=== PATIENT | female | born 1985 | race Caucasian/White ===

== ENCOUNTER 2024-07-07 09:49 | Emergency (ER) | payer BC ==
[~2024-07-07] VITALS: Ht 152.4 cm; Wt 52.6 kg
[2024-07-07 12:05] LABS: BILIRUBIN,URINE NEGATIVE (Neg); CLARITY,URINE CLEAR (Clear); COLOR,URINE YELLOW (Yellow); GLUCOSE, URINE NEGATIVE (Neg); KETONES,URINE TRACE mg/dl (Neg); LEUKOCYTE ESTERASE ,URINE NEGATIVE (Neg); NITRITES, URINE NEGATIVE (Neg); OCCULT BLOOD,URINE NEGATIVE (Neg); PROTEIN,URINE NEGATIVE (Neg); UROBILINOGEN,URINE 0.2 E.U/dL (0.2-1.0)
[2024-07-07 12:11] LABS: UA COLLECTION TYPE CLN CATCH MIDSTREAM
[2024-07-07] MEDS: ondansetron 4mg rapidly disintigrating tab PO ONE (12:35)
[2024-07-07] MEDS: HYDROcodone/acetaminophen 5mg/325mg tablet PO ONE (12:36)
[2024-07-07] MEDS: cyclobenzaprine 10mg tablet PO ONE (12:36)
[2024-07-07] MEDS: ketorolac trometh 30MG/ML vial 30 MG/ML VIAL IM ONE (12:38)
[2024-07-07] MEDS: dexamethasone sod phosphate 10mg/ml inj IM STA (12:39)
[2024-07-07 13:28] VITALS: BP 125/77; PULSE 60; RESP 16; TEMP 98.7; O2SAT 99
== END 2024-07-07 13:30 | disposition home or self-care (01) ==
LOC: ER 09:50
DX: M54.50 Low back pain, unspecified (principal); Z91.040 Latex allergy status
CPT/HCPCS: 72100; 81003; 96372; 99284; J1100; J1885